=== PATIENT | male | born 1965 | race Caucasian/White ===

== ENCOUNTER → 2017-02-05 | Outpatient (CLI) | payer OTHER ==
--- NOTE | 2017-02-05 17:04 | RADRPT ---
EXAM DATE/TIME: 02/05/2017 15:22 [facility] COMPARISON: No previous studies available for comparison. INDICATIONS : Left elbow swelling and pain. MEDICAL HISTORY : None. SURGICAL HISTORY : None. ENCOUNTER: Initial ACUITY: 2 months PAIN SCORE: 2/10 LOCATION: Left elbow FINDINGS: Multiple view examination of the left elbow demonstrates no soft tissue swelling, joint effusion, or fracture. The osseous structures are in normal alignment. Bony mineralization is normal. CONCLUSION: Unremarkable examination of the left elbow. Keven Khan Jr., MD on February 05, 2017 at 17:02 Board Certified Radiologist. This report was verified electronically.
--- NOTE | 2017-02-05 17:07 | RADRPT ---
EXAM DATE/TIME: 02/05/2017 15:33 [facility] COMPARISON: No previous studies available for comparison. INDICATIONS : Left elbow swelling. MEDICAL HISTORY : Left elbow swelling. SURGICAL HISTORY : None. ENCOUNTER: Initial ACUITY: 1 week PAIN SCORE: 10 LOCATION: Left elbow. AREA EVALUATED: Left lateral elbow. FINDINGS: Sonographic evaluation of the left lateral elbow subcutaneous tissues reveals a 2.8 x 2.2 x 0.6 cm mi xed echogenicity but nearly isoechoic area within the subcutaneous fat. No significant hyperemia no f luid. No mass effect. This area is approximately 1/2 cm deep to the skin surface. CONCLUSION: 1. 2.8 x 2.2 x 0.6 cm nodular density with an area of palpable concern. It is nonspecific in sonograp hic appearance. Is not a simple fluid collection that would be drainable. It could relate to a phlegm on or could relate to a soft tissue mass. Keven Khan Jr., MD on February 05, 2017 at 17:02 Board Certified Radiologist. This report was verified electronically.
== END ==
LOC: HRAD 14:46
PROVIDERS: ATTEND Family Medicine
DX: M25.522 Pain in left elbow (principal); R22.32 Localized swelling, mass and lump, left upper limb
CPT/HCPCS: 73080; 76882